=== PATIENT | male | born 1995 | race Caucasian/White ===

== ENCOUNTER 2018-04-28 13:33 | Emergency (ER) | payer OTHER ==
--- NOTE | 2018-04-28 13:35 | PDOC ---
History of Present Illness - General Chief Complaint: Pain, Acute Stated Complaint: RIGHT COLLAR BONE FX SENT BY URGENT CARE Time Seen by Provider: 04/28/18 13:34 History Source: Patient Exam Limitations: No Limitations Past History - Past Medical History Allergies/Adverse Reactions: Allergies Allergy/AdvReac Type Severity Reaction Status Date / Time No Known Allergies Allergy Verified 04/28/18 13:34 Home Medications: Ambulatory Orders NK [No Known Home Medication] 04/28/18 Medical Decision Making - Medical Decision Making (entered later) Pt was seen at bedside, also will be seen by attending [ ]. Pt presenting with PE showed [] Considering [vs vs] Ordered work-up including [labs] and [imaging]. Provided [interventions/meds] for improvement of [pain/symptom control]. Will continue to reassess pt and monitor for symptomatic improvement. Considering [normal results and imaging] pt can be discharged to home with follow-up. Pt advised to follow-up with PCP in 1-2 days and has been referred to [referrals]. Strict return precautions provided with pt understanding. 04/29/18 11:51 *DC/Admit/Observation/Transfer Diagnosis at time of Disposition: Closed right clavicular fracture Qualifiers: Encounter type: initial encounter Clavicle location: unspecified part of clavicle Fracture alignment: nondisplaced Qualified Code(s): S42.001A - Fracture of unspecified part of right clavicle, initial encounter for closed fracture - Discharge Dispostion Disposition: HOME Condition at time of disposition: Stable Decision to Admit order: No - Referrals Referrals: Jarrett Ellis MD [Staff Physician] - - Patient Instructions Printed Discharge Instructions: DI for Clavicle Fracture-Adult Additional Instructions: You were seen in the ER today for a clavicle fracture. Please follow-up with your primary care doctor and an orthopedic doctor by tomorrow to discuss your visit and so that you can follow up for additional evaluation. Please keep the sling on until you see the orthopedic doctor. Please return to the ER if you have any worsening pain, loss of consciousness, loss of strength or sensation in your arms or hands, inability to tolerate food or fluids, or any other concerns. - Post Discharge Activity
[2018-04-28 13:40] VITALS: BP 104/60; PULSE 53; TEMP 97.8; BMI 21.7
--- NOTE | 2018-04-28 14:27 | PDOC ---
Attending Attestation - Resident Resident Name: CarlosBelkis - ED Attending Attestation I have performed the following: I have examined & evaluated the patient, The case was reviewed & discussed with the resident, I agree w/resident's findings & plan, Exceptions are as noted - HPI HPI: 04/28/18 14:23 sent from [facility] for clavicular injury "to see ortho immeidately". Fracture is closed and happened yesterday, pt has been using arm since injury. - Physicial Exam PE: 04/28/18 14:24 NAD RRR CTABL, no crepitus soft NTND R clavicluar area w/ ++ echymosis and swelling, NO tenting, NO skin breaks. distal sensation and pulses intact. A&O x 3. - Medical Decision Making 04/28/18 14:25 22yoM w/ closed clavicular fx. - called [facility] for rads reports. No PTX, clavicular fx w/ minimal displacemnet, minimal overlap. - pt "doesn't like" the shoulder sling. Pt instructed to wear the sling. - offered pt f/u w/ ortho here at [facility] on monday, but pt lives in [place] and would rather follow with an orthopedist closer to there and now at [facility]. - will not repeat xrays as pt will not be following with us. - DC w/ sling and tylenol/ibuprofen for pain control.
== END 2018-04-28 14:36 | disposition home or self-care (01) ==
LOC: FER 13:33
DX: S42.001A Fracture of unspecified part of right clavicle, initial encounter for closed fracture (principal); X58.XXXA Exposure to other specified factors, initial encounter; Y93.89 Activity, other specified; Y92.9 Unspecified place or not applicable
CPT/HCPCS: 99282-25